=== PATIENT | female | born 1975 ===

== ENCOUNTER 2024-12-21 18:01 | Emergency (ER) | payer OTHER, MEDICAID ==
[~2024-12-21] VITALS: Ht 170.2 cm; Wt 95.3 kg
[2024-12-21 18:03] VITALS: O2SAT 98
[2024-12-21] MEDS ORDERED: IBUP-2029 MT (18:32)
[2024-12-21 20:01] VITALS: BP 168/90; PULSE 73; RESP 18; TEMP 36.8; O2SAT 99
== END 2024-12-21 20:11 | disposition home or self-care (01) ==
LOC: ER 18:01
DX: M25.562 Pain in left knee (principal); I10 Essential (primary) hypertension; X58.XXXA Exposure to other specified factors, initial encounter; Y93.89 Activity, other specified; Y92.89 Other specified places as the place of occurrence of the external cause; Y99.8 Other external cause status
CPT/HCPCS: 29505; 73562; 99283